=== PATIENT | female | born 1955 | race Hispanic/Latino ===

== ENCOUNTER 2020-05-14 19:01 | Emergency (ER) | payer OTHER, MEDICARE ==
[~2020-05-14] VITALS: Ht 157.5 cm; Wt 86.6 kg
[2020-05-14] MEDS ORDERED: ACETAMINOPHEN 325 MG TAB PO ONE (19:45)
--- OUTSIDE RECORDS SUMMARY | 2020-05-14 20:16 | XMS REPORT | Continuity of Care Document ---
Author Author [facility] Organization [facility] Address [address] [place] [address] Phone Unavailable Care Team Providers Care Field Sales Specialist Name Role Phone Unavailable Unavailable Problems This patient has no known problems. Allergies, Adverse Reactions, Alerts This patient has no known allergies or adverse reactions. Medications This patient has no known medications. Procedures This patient has no known procedures. Encounters Start Date/Time End Date/Time Encounter Type Admission Type [facility] Care Department Encounter ID Source 2019-08-16 09:19:00 2019-08-16 09:19:00 Emergency E [id number] Results Test Description Test Time Test Comments Results Result Comments Source SCR MAMM BILATERAL POLY CAD DIGITAL 2019-06-02 13:27:47 - SCR MAMM BILATERAL POLY CAD DIGITALBILATERAL DIGITAL SCREENING MAMMOGRAM 3D/2D WITH CAD: 06/02/2019CLINICAL: Asymptomatic. Digital breast tomosynthesis was performed in addition to routine CC and MLO views. Current mammographic images were evaluated by either a [employer] M-Vu or a [employer] ImageChecker CAD (computer aided detection system). Comparison is made to exams dated 05/12/2018 mammogram, 04/11 mammogram - [facility] and 05/26/2014 mammogram - [facility]. There are scattered fibroglandular tissues in both breasts. No suspicious mass, architectural distortion, malignant type calcification, or lymph node abnormality detected. Breast architecture is stable compared to prior exams.IMPRESSION: NEGATIVEThere is no mammographic evidence of malignancy. Resume annual screening mammography in one year. Nikolay Rosas M.D. ss/penrad:06/02/2019 13:27:47 Laundry Equipment Operator: Nina Lockett , [facility]-FWletter sent: BIRADS 1-2 Normal Mammogram BI-RADS: 1 Negative
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
== END 2020-05-14 21:17 | disposition home or self-care (01) ==
LOC: FSED 19:40
DX: M25.512 Pain in left shoulder (principal); R51.9 Headache, unspecified; V43.53XA Car driver injured in collision with pick-up truck in traffic accident, initial encounter; Y92.488 Other paved roadways as the place of occurrence of the external cause; I10 Essential (primary) hypertension; E11.9 Type 2 diabetes mellitus without complications; E78.5 Hyperlipidemia, unspecified
CPT/HCPCS: 70450; 72125; 99283

== ENCOUNTER 2021-06-03 12:39 | Emergency (ER) | payer MEDICARE, OTHER ==
[~2021-06-03] VITALS: Ht 157.5 cm; Wt 88.9 kg
[2021-06-03] MEDS ORDERED: KETOROLAC TROMETHAMINE 30 MG/ML VIAL IV STA (13:37)
[2021-06-03] MEDS ORDERED: ONDANSETRON HCL INJ 2MG/ML 2ML 2 MG/ML VIAL IV STA (13:37)
[2021-06-03] MEDS ORDERED: SODIUM CHLORIDE 0.9% 1000ML 1,000 ML IV SCH (13:45)
[2021-06-03] MEDS ORDERED: LEVSIN-SL0.125 MG SL (16:48)
[2021-06-03 17:07] VITALS: BP 140/72
== END 2021-06-03 17:08 | disposition home or self-care (01) ==
LOC: FSED 12:50
DX: R10.9 Unspecified abdominal pain (principal); I10 Essential (primary) hypertension; E11.9 Type 2 diabetes mellitus without complications; E78.5 Hyperlipidemia, unspecified
CPT/HCPCS: 74177; 80048; 80076; 81003; 82553; 84484; 85025; 93005; 99283

== ENCOUNTER 2024-05-11 06:02 | Emergency (ER) | payer MEDICARE ==
[~2024-05-11] VITALS: Ht 157.5 cm; Wt 85.7 kg
[~2024-05-11 06:02] MED LIST: LEVSIN-SL0.125 MG SL
[2024-05-11] MEDS ORDERED: SODIUM CHLORIDE 0.9% 1000ML 1,000 ML ONE (06:38)
[2024-05-11] MEDS ORDERED: ONDANSETRON HCL INJ 2MG/ML 2ML 2 MG/ML VIAL ONE (06:38)
[2024-05-11] MEDS: FAMOTIDINE 20 MG/2 ML VIAL IV ONE (07:15)
[2024-05-11] MEDS: ONDANSETRON HCL INJ 2MG/ML 2ML 2 MG/ML VIAL IV ONE (07:16)
[2024-05-11] MEDS: KETOROLAC TROMETHAMINE 30 MG/ML VIAL IV ONE (07:16)
[2024-05-11] MEDS: SODIUM CHLORIDE 0.9% 1000ML 1,000 ML IV STA (07:16)
[2024-05-11] MEDS ORDERED: IOPAMIDOL 370 MG/ML 100 ML INFUS..BTL INJ ONE (08:14)
[2024-05-11] MEDS: Morphine 4mg INJECTION 4 MG/ML INJ IV ONE (08:49)
[2024-05-11] MEDS ORDERED: TYLENOL325 MG PO (08:56)
[2024-05-11] MEDS ORDERED: ONDANSETRON ODT4 MG PO (08:56)
[2024-05-11] MEDS ORDERED: FAMOTIDINE20 MG PO (08:56)
[2024-05-11 09:11] VITALS: PULSE 69; RESP 18; TEMP 98.2; O2SAT 97
== END 2024-05-11 09:11 | disposition home or self-care (01) ==
LOC: FSED 06:24 → MERGE 06:24 → FSED 09:11
DX: R10.32 Left lower quadrant pain (principal); K52.9 Noninfective gastroenteritis and colitis, unspecified; R11.2 Nausea with vomiting, unspecified
CPT/HCPCS: 74177; 80048; 80076; 81003; 85025; 96360; 96374; 96375; 99284; J1885; J2405; J7030; Q9967